=== PATIENT | male | born 1955 | race Two or more races ===

== ENCOUNTER → 2023-09-08 | Outpatient (CLI) | payer MEDICAID, OTHER ==
[~2023-09-08] VITALS: Ht 162.6 cm; Wt 79.4 kg
[~2023-09-08] MED LIST: ASPI-543 PO; ENAL5TAB22 PO; METF-370 PO; METO-289 PO; WARF-110 PO
== END | disposition home or self-care (01) ==
LOC: Rad HDHVI 12:26
PROVIDERS: ATTEND Internal Medicine Cardiovascular Disease
DX: I49.3 Ventricular premature depolarization (principal); I25.10 Atherosclerotic heart disease of native coronary artery without angina pectoris; I48.91 Unspecified atrial fibrillation; R00.1 Bradycardia, unspecified; E11.9 Type 2 diabetes mellitus without complications; I34.0 Nonrheumatic mitral (valve) insufficiency; R94.31 Abnormal electrocardiogram [ECG] [EKG]; Z95.1 Presence of aortocoronary bypass graft
CPT/HCPCS: 78452; 93017; 96374; A9500